=== PATIENT | female | born 1985 | race Caucasian/White ===

== ENCOUNTER 2019-11-28 14:26 | Outpatient (REF) | payer BC, SELFPAY ==
--- NOTE | 2019-11-28 14:00 | PAPFT_PTH ---
PATIENT: VÍCTOR DELUNA LOC: [facility] U#:[id number] AGE/SX: 34/F ROOM: RE11/28/[address]: SERGIO Lara : 1985 BED: DIS: 11/28/2019 SPEC #: [id number] RECD: 11/28/19 18:02 STATUS: ELIEZER REDominic #: [id number] ANDRES: 11/28/19 14:[address]: Katherine Sam DEPT: [facility] Cytology RECD BY: Malgorzata Givens ENTERED: 11/28/19 18:02 SP TYPE: PAPFT OT DR: Kyung Local Tissues: 1 - CX/ENDOCX FOR PAP SMEARS Procedures: PAP THIN PREP/[facility] Screening HPV DNA PROBE Comments: [id number]
== END 2019-11-28 14:46 ==
LOC: LBN 14:26
PROVIDERS: Visit Provider Nurse Practitioner Family
DX: Z12.4 Encounter for screening for malignant neoplasm of cervix (principal); Z11.51 Encounter for screening for human papillomavirus (HPV)
CPT/HCPCS: 88142; 87624